=== PATIENT | male | born 1935 | race Caucasian/White ===

== ENCOUNTER 2021-10-31 22:26 | Emergency (ER) | payer OTHER ==
[~2021-10-31] VITALS: Ht 182.9 cm; Wt 94.3 kg
[2021-10-31 22:30] VITALS: BP 152/95
--- NOTE | 2021-10-31 22:34 | NUR ---
PT ATIYA GOTTLIEB. TAKEN TO BED 11
--- NOTE | 2021-10-31 22:40 | NUR ---
Dr. Espinal examining patient.
--- NOTE | 2021-10-31 23:45 | NUR ---
Patient returned from CT scan via [facility].
--- NOTE | 2021-10-31 23:50 | NUR ---
Blood for labwork drawn from left arm by trailer mechanic. Patient tolerated well.
[2021-11-01] LABS: BASOPHILS % (AUTO) 0.6 % (0.0-2.0); EOSINOPHILS # (AUTO) 0.3 K/uL (0-0.4); EOSINOPHILS % (AUTO) 3.4 % (0.0-4.0); HEMATOCRIT 34.6 % (36-52); HEMOGLOBIN 11.7 g/dL (12.0-18.0); MEAN CORPUSCULAR HEMOGLOBIN 33 pg (27-31); MEAN CORPUSCULAR HGB CONC 34 g/dL (33-37); MEAN CORPUSCULAR VOLUME 96.3 fL (80-94); MONOCYTES # (AUTO) 0.6 K/uL (0.8-1.0); MONOCYTES % (AUTO) 8.4 % (1.7-9.3); NEUTROPHILS # (AUTO) 4.7 K/uL (1.8-7.7); NEUTROPHILS % (AUTO) 61.6 % (42.2-75.2); PLATELET COUNT (AUTO) 276 K/uL (140-450); RED BLOOD CELL COUNT(AUTO) 3.59 MIL/uL (4.20-6.10); RED CELL DISTRIBUTION WIDTH 14.8 % (11.6-13.7); WHITE BLOOD COUNT (AUTO) 7.7 K/uL (4.8-10.8)
[2021-11-01 00:10] LABS: APPEARANCE,URINE CLEAR (CLEAR); BILIRUBIN,URINE NEGATIVE (NEGATIVE); COLOR,URINE YELLOW (YELLOW); LEUKOCYTE ESTERASE ,URINE NEGATIVE (NEGATIVE); NITRITE, URINE NEGATIVE (NEGATIVE); UGLUCOSE NEGATIVE (NEGATIVE)
[2021-11-01 00:18] LABS: BLOOD, URINE NEGATIVE (NEGATIVE)
[2021-11-01 00:29] LABS: ALBUMIN 3.2 g/dL (3.4-5.0); ANION GAP 12.4 (8-16); ASPARTATE AMINOTRANSFERASE 23 U/L (15-37); CARBON DIOXIDE 27.6 mmol/L (21-32); CHLORIDE 103 mmol/L (98-107); CREATININE 1.6 mg/dL (0.6-1.3); GLUCOSE 101 mg/dL (74-106); SODIUM SERUM 139 mmol/L (136-145); TOTAL BILIRUBIN 0.3 mg/dL (0.0-1.0); UREA NITROGEN, BLOOD 23 mg/dL (7-18)
[2021-11-01 02:26] VITALS: BP 142/82
--- NOTE | 2021-11-01 02:26 | NUR ---
Patient D/C back to facility and Patient will transport by [facility].
== END 2021-11-01 02:26 | disposition home or self-care (01) ==
LOC: MED 22:26
DX: F03.90 Unspecified dementia, unspecified severity, without behavioral disturbance, psychotic disturbance, mood disturbance, and anxiety (principal); Z98.890 Other specified postprocedural states
CPT/HCPCS: 36415; 70450; 80053; 81003; 85025; 99284

== ENCOUNTER 2022-01-16 20:10 | Emergency (ER) | payer MEDICARE, OTHER ==
[~2022-01-16] VITALS: Ht 182.9 cm; Wt 83.5 kg
[2022-01-16 20:14] VITALS: BP 137/76
--- NOTE | 2022-01-16 20:20 | NUR ---
FIRST CONTACT WITH PT. SEE ASSESSMENT. PT PLACED ON C-MONITOR AT THIS TIME.
--- NOTE | 2022-01-16 20:32 | NUR ---
DR. LONG AT BEDSIDE FOR EXAM.
[2022-01-16 21:07] LABS: BASOPHILS % (AUTO) 0.1 % (0.0-2.0); HEMATOCRIT 37.6 % (36-52); HEMOGLOBIN 12.5 g/dL (12.0-18.0); LYMPHOCYTES # (AUTO) 0.6 K/uL (2.0-11.5); MEAN CORPUSCULAR HEMOGLOBIN 32 pg (27-31); MEAN CORPUSCULAR HGB CONC 33 g/dL (33-37); MEAN CORPUSCULAR VOLUME 94.9 fL (80-94); MONOCYTES # (AUTO) 0.7 K/uL (0.8-1.0); MONOCYTES % (AUTO) 6.3 % (1.7-9.3); NEUTROPHILS # (AUTO) 10.1 K/uL (1.8-7.7); NEUTROPHILS % (AUTO) 88.6 % (42.2-75.2); PLATELET COUNT (AUTO) 255 K/uL (140-450); RED BLOOD CELL COUNT(AUTO) 3.97 MIL/uL (4.20-6.10); RED CELL DISTRIBUTION WIDTH 15.3 % (11.6-13.7); WHITE BLOOD COUNT (AUTO) 11.4 K/uL (4.8-10.8)
[2022-01-16 21:22] LABS: ALBUMIN 3.2 g/dL (3.4-5.0); ANION GAP 10.8 (8-16); ASPARTATE AMINOTRANSFERASE 28 U/L (15-37); CARBON DIOXIDE 26.5 mmol/L (21-32); CHLORIDE 105 mmol/L (98-107); CREATININE 2.3 mg/dL (0.6-1.3); GLUCOSE 127 mg/dL (74-106); POTASSIUM 4.3 mmol/L (3.5-5.1); SODIUM SERUM 138 mmol/L (136-145); TOTAL BILIRUBIN 0.7 mg/dL (0.0-1.0); UREA NITROGEN, BLOOD 40 mg/dL (7-18)
[2022-01-16] MEDS ORDERED: BACI1PAC6 TP (22:22)
[2022-01-16] MEDS ORDERED: ACET-10509 PO (22:22)
--- NOTE | 2022-01-16 22:30 | NUR ---
SPOKE WITH DAUGHTER MARCELLA ABOUT RESULTS. SHE WILL COME PICK PT UP AND TAKE HIM BACK TO [facility].
[2022-01-16 23:08] VITALS: BP 132/65
--- NOTE | 2022-01-16 23:08 | NUR ---
Patient discharged with v/s stable. Written and verbal after care instructions given and explained. Patient verbalized understanding. Wheel Chair Assisted with by caregiver. All questions addressed prior to discharge. Advised to follow up with PMD.
== END 2022-01-16 20:38 | disposition home or self-care (01) ==
LOC: MED 20:10
DX: S00.81XA Abrasion of other part of head, initial encounter (principal); E03.9 Hypothyroidism, unspecified; G30.9 Alzheimer's disease, unspecified; Z79.899 Other long term (current) drug therapy; Z79.2 Long term (current) use of antibiotics; Z88.6 Allergy status to analgesic agent; W18.39XA Other fall on same level, initial encounter; Y92.89 Other specified places as the place of occurrence of the external cause; Y93.89 Activity, other specified; Y99.8 Other external cause status
CPT/HCPCS: 36415; 70450; 72125; 80053; 81002; 84484; 85025; 93005; 99285

== ENCOUNTER 2022-01-19 16:10 | Emergency (ER) | payer MEDICARE, MEDICAID ==
[~2022-01-19] VITALS: Ht 185.4 cm; Wt 77.1 kg
[~2022-01-19 16:10] MED LIST: ACET-10509 PO; BACI1PAC6 TP
--- NOTE | 2022-01-19 16:10 | NUR ---
[facility] BLS TO ER BED 1
[2022-01-19 16:15] VITALS: BP 139/87
--- NOTE | 2022-01-19 16:40 | NUR ---
86 y/o male biba from [facility] for medical evaluation d/t "patient leaning forward on wheelchair" staff at facility want him to be evaluated. Patient did not fall or get injured. Patient denies any pain or discomfort. Patient is COVID + on 01/18/22. Medical History: Alzheimers, BPH, HYPOTHYROIDISM, Osteoporosis ALLERGY: NSAID's
--- NOTE | 2022-01-19 17:06 | NUR ---
GAVE REPORT TO KANDY BACON AT FACILITY FOR PATIENT'S DC
--- NOTE | 2022-01-19 19:19 | NUR ---
Report given to JORDI Robledo for transfer of care.
[2022-01-19 20:06] LABS: BASOPHILS % (AUTO) 0.2 % (0.0-2.0); HEMATOCRIT 35.1 % (36-52); HEMOGLOBIN 11.7 g/dL (12.0-18.0); LYMPHOCYTES # (AUTO) 0.6 K/uL (2.0-11.5); LYMPHOCYTES % (AUTO) 7.2 % (20.5-51.1); MEAN CORPUSCULAR HEMOGLOBIN 32 pg (27-31); MEAN CORPUSCULAR HGB CONC 33 g/dL (33-37); MEAN CORPUSCULAR VOLUME 94.3 fL (80-94); MONOCYTES # (AUTO) 0.6 K/uL (0.8-1.0); MONOCYTES % (AUTO) 7.4 % (1.7-9.3); NEUTROPHILS # (AUTO) 6.8 K/uL (1.8-7.7); NEUTROPHILS % (AUTO) 85.2 % (42.2-75.2); PLATELET COUNT (AUTO) 265 K/uL (140-450); RED BLOOD CELL COUNT(AUTO) 3.72 MIL/uL (4.20-6.10); RED CELL DISTRIBUTION WIDTH 15.1 % (11.6-13.7); WHITE BLOOD COUNT (AUTO) 7.9 K/uL (4.8-10.8)
--- NOTE | 2022-01-19 20:14 | NUR ---
[facility] CALLED. PT TESTED POSITIVE FOR COVID.
[2022-01-19 20:19] LABS: ANION GAP 16.3 (8-16); CARBON DIOXIDE 24.1 mmol/L (21-32); CHLORIDE 108 mmol/L (98-107); CREATININE 2.4 mg/dL (0.6-1.3); GLUCOSE 139 mg/dL (74-106); POTASSIUM 4.4 mmol/L (3.5-5.1); SODIUM SERUM 144 mmol/L (136-145); UREA NITROGEN, BLOOD 51 mg/dL (7-18)
[2022-01-19] MEDS ORDERED: NACL 0.9% 1,000 ML IV ONE (20:30)
--- NOTE | 2022-01-20 01:53 | NUR ---
[facility] ARRIVED FOR PT HAND PLEATER
--- NOTE | 2022-01-20 01:56 | NUR ---
REPORT GIVEN TO JORDI BAIN AT [facility]. [phone]
[2022-01-20 02:00] VITALS: BP 146/68
--- NOTE | 2022-01-20 02:00 | NUR ---
Patient to be transferred to [facility]. Is being transferred due to INSURANCE . Receiving facility has accepting physician and available space. ER physician has signed transfer form. Patient or responsible republican has agreed to transfer and signed form. Patient belongings inventoried and will be sent with patient. Copy of nursing notes, lab reports, EKG, Physicians Orders and X-rays to be sent with patient. Report called to JORDI BAIN at receiving facility. [facility] ambulance service has been called for transfer. ETA is 30MINS.
== END 2022-01-20 02:00 | disposition short-term general hospital (02) ==
LOC: MED 16:10
DX: U07.1 COVID-19 (principal); N17.9 Acute kidney failure, unspecified; D64.9 Anemia, unspecified; I10 Essential (primary) hypertension; E03.9 Hypothyroidism, unspecified; F03.90 Unspecified dementia, unspecified severity, without behavioral disturbance, psychotic disturbance, mood disturbance, and anxiety; Z79.899 Other long term (current) drug therapy
CPT/HCPCS: 36415; 72170; 73020; 80048; 83605; 85025; 87426; 96360; 99285; J7030; Q0092